=== PATIENT | male | born 1965 | race Caucasian/White ===

== ENCOUNTER 2023-12-30 20:12 | Emergency (ER) | payer BC, SELFPAY ==
[2023-12-30 20:19] VITALS: BP 170/106
[2023-12-30 20:35] LABS: % Basophils 0.6 % (0-2); % Eosinophils 0.2 % (0-6); % Immature Granulocytes 0.2 % (0-0.5); % Lymphocytes 18.6 % (20.5-51.1); % Monocytes 6.6 % (1.7-9.3); % Neutrophils 73.8 % (42.2-75.2); Absolute Monocytes 0.4 10^3/uL (0.1-0.6); Hematocrit 36.2 % (39.0-52.0); Hemoglobin 13.2 g/dL (13.0-18.0); Mean Corp Hgb Conc. 36.5 g/dL (33.0-37.0); Mean Corpuscular Hgb 29.9 pg (27.0-31.0); Mean Corpuscular Volume 81.9 fL (80.0-94.0); Mean Platelet Volume 8.5 fL (7.4-10.4); Nucleated Red Blood Cells % 0 % (-); Platelet Count 241 10^3/uL (130-400); Red Blood Cell Count 4.42 10^6/uL (4.70-6.10); Red Cell Dist. Width 12.4 % (11.5-14.5); White Blood Cell Count 5.4 10^3/uL (4.8-10.8)
[2023-12-30 20:53] LABS: COVID-19 Antigen Negative (Negative)
[2023-12-30 20:56] LABS: ALT (SGPT) 44 U/L (0-50); AST (SGOT) 48 U/L (17-59); Albumin 4.5 g/dl (3.5-5.0); Alkaline Phosphatase 66 U/L (38-126); Blood Urea Nitrogen 12 mg/dl (9-20); Calcium 9.5 mg/dl (8.4-10.2); Carbon Dioxide 26 mmol/L (22-30); Chloride 102 mmol/L (98-107); Glucose 95 mg/dl (70-99); Potassium 3.8 mmol/L (3.5-5.1); Sodium 142 mmol/L (135-145); Total Bilirubin 0.5 mg/dl (0.2-1.3); eGFR > 60.00
[2023-12-30 21:00] LABS: Troponin I < 0.012 ng/ml
[2023-12-30 22:22] VITALS: BP 158/90
--- NOTE | 2023-12-30 22:25 | EDRN ---
PT LEFT AT 12/30/2023 6379
== END 2023-12-30 22:10 ==
LOC: EMR 20:12
PROVIDERS: EMERGENCY PHYSICIAN Emergency Medicine
DX: R55 Syncope and collapse (principal); Z11.52 Encounter for screening for COVID-19; Z53.21 Procedure and treatment not carried out due to patient leaving prior to being seen by health care provider
CPT/HCPCS: 80053; 84484; 85025; 87811; 93005

== ENCOUNTER 2024-03-06 19:59 | Emergency (ER) | payer BC, SELFPAY ==
[2024-03-06] VITALS (7 sets, daily range): BP systolic 143–196; BP diastolic 96–107; BMI 28.3
[2024-03-06 20:30] LABS: % Basophils 0.6 % (0-2); % Eosinophils 0.1 % (0-6); % Immature Granulocytes 0.3 % (0-0.5); % Lymphocytes 16.5 % (20.5-51.1); % Monocytes 5.3 % (1.7-9.3); % Neutrophils 77.2 % (42.2-75.2); Absolute Lymphocytes 1.1 10^3/uL (1.2-3.4); Absolute Monocytes 0.4 10^3/uL (0.1-0.6); Absolute Neutrophils 5.2 10^3/uL (1.4-6.5); Hematocrit 40.7 % (39.0-52.0); Hemoglobin 14.2 g/dL (13.0-18.0); Mean Corp Hgb Conc. 34.9 g/dL (33.0-37.0); Mean Corpuscular Hgb 30.1 pg (27.0-31.0); Mean Corpuscular Volume 86.4 fL (80.0-94.0); Mean Platelet Volume 8.5 fL (7.4-10.4); Nucleated Red Blood Cells % 0 % (-); Platelet Count 247 10^3/uL (130-400); Red Blood Cell Count 4.71 10^6/uL (4.70-6.10); Red Cell Dist. Width 12.1 % (11.5-14.5); White Blood Cell Count 6.7 10^3/uL (4.8-10.8)
[2024-03-06 20:47] LABS: ALT (SGPT) 42 U/L (0-50); AST (SGOT) 53 U/L (17-59); Albumin 4.5 g/dl (3.5-5.0); Alkaline Phosphatase 69 U/L (38-126); Blood Urea Nitrogen 17 mg/dl (9-20); Calcium 9.4 mg/dl (8.4-10.2); Carbon Dioxide 27 mmol/L (22-30); Chloride 101 mmol/L (98-107); Glucose 93 mg/dl (70-99); Sodium 139 mmol/L (135-145); Total Bilirubin 0.8 mg/dl (0.2-1.3); Total Protein 7.3 g/dl (6.3-8.2); eGFR > 60.00
[2024-03-06 20:58] LABS: Troponin I < 0.012 ng/ml
--- NOTE | 2024-03-06 22:33 | ED.GENMED ---
History of Present Illness
<Dontrell Cline DO - Last Filed: 03/06/24 22:35>
General
Chief Complaint: Chest Pain
Time Seen by Provider: 03/06/24 21:36
<Wilber Issa PA-C - Last Filed: 03/07/24 00:04>
General
Source: patient
History of Present Illness
History of Present Illness:
58-year-old male presenting to the emergency department for evaluation of chest discomfort and shortness of breath that started approximately 2 hours prior to arrival in the emergency department with pain described to now be fully resolved but
initially was more of a dull discomfort within the central portion of his chest, nonradiating and constant at the time. Patient notes the associated shortness of breath but denies any cough, pleurisy, hemoptysis, abdominal pain, nausea, vomiting,
lightheadedness or dizziness. Denies any history of similar. Patient noted that earlier in the week he had traveled to [place] in [place] for work. Denies cigarettes or tobacco use. Does admit to drinking alcoholic beverages on the weekend and
states that he had 4 or 5 seltzers last night but nothing so far today.
Past History
<Dontrell Cline DO - Last Filed: 03/06/24 22:35>
Past History
ED Past Medical History: None
ED Past Surgical History: Orthopedic and Tonsilectomy
Social History
Tobacco: Non-smoker
Personal:
Living: with family
Employment: Employed (Sales)
<Wilber Issa PA-C - Last Filed: 03/07/24 00:04>
Past History
ED Past Medical History: GERD
Social History
Alcohol: Occasional
Drug: None
Review of Systems
<Wilber Issa PA-C - Last Filed: 03/07/24 00:04>
Review of Systems
All Other Systems: ROS reviewed and negative except as documented in HPI and ROS
Phy Exam
<Wilber Issa PA-C - Last Filed: 03/07/24 00:04>
Physical Exam
Physical Exam:
GENERAL: Alert , in no apparent distress
EYE: conjunctiva clear
NECK: Supple
ENT: o/p clr, mmm.
CARDIAC: Regular rate and rhythm
LUNGS: Clear breath sounds bilaterally, no acute respiratory distress, no wheezes/rales/rhonchi, mildly tachypnea
NEUROLOGICAL: Alert and oriented
SKIN: Warm and dry, skin intact.
MUSCULOSKELETAL: well perfused.
PSYCH: Normal and appropriate interaction.
Scores
<Wilber Issa PA-C - Last Filed: 03/07/24 00:04>
Heart Failure Risk
Heart Failure Risk Score: Not Applicable
Heart Score for Chest Pain Patients
STEMI patient?: No
History: Slightly or Non-Suspicious
ECG: Nonspecific Repolarization
Age: >45 - <65 years
Risk Factors: No Risk Factors
Troponin: </= Normal Limit
Heart Score for Chest Pain Patients: 2
Heart Score Risk: 2.5% MACE over next 6 weeks
Withdrawal Assessment of Alcohol
Withdrawal Assessment Completed?: Not applicable
Course
<Dontrell Cline DO - Last Filed: 03/06/24 22:35>
Orders/Labs/Results
Orders:
Orders
03/06/24 20:00
ECG [Electrocardiogram (*1)] Urgent
Reason for Study: Chest Pain
EKG- Treatment ONCE
03/06/24 20:22
Complete Blood Count/With Diff Urgent
Comprehensive Metabolic Panel Urgent
Troponin I Urgent
03/06/24 21:41
CT Chest Pe Study Urgent
Comment:
Reason For Exam: SOB, chest pain
03/06/24 22:30
EKG- Treatment ONCE
03/06/24 23:01
Troponin I Urgent
03/06/24 23:30
Electrocardiogram (*1) Urgent
Reason for Study: Shortness of Breath
Abnormal Lab Results
03/06/24
20:22
Absolute Lymphs (auto) 1.1 L 10^3/uL
(1.2-3.4)
Neutrophils % 77.2 H %
(42.2-75.2)
Lymphocytes % 16.5 L %
(20.5-51.1)
03/06/24 20:22
03/06/24 20:22
Vital Signs
Initial and Last Documented VS:
Initial Vital Signs
Temp Pulse Resp BP Pulse Ox
97.9 F 87 18 157/107 99
03/06/24 20:07 03/06/24 20:07 03/06/24 20:07 03/06/24 20:07 03/06/24 20:07
Last Documented Vital Signs
Temp Pulse Resp BP Pulse Ox
97.9 F 92 14 147/98 94
03/06/24 20:07 03/06/24 23:45 03/06/24 23:45 03/06/24 23:30 03/06/24 23:45
<Wilber Issa PA-C - Last Filed: 03/07/24 00:04>
Orders/Labs/Results
Orders:
Orders
03/06/24 20:00
ECG [Electrocardiogram (*1)] Urgent
Reason for Study: Chest Pain
EKG- Treatment ONCE
03/06/24 20:22
Complete Blood Count/With Diff Urgent
Comprehensive Metabolic Panel Urgent
Troponin I Urgent
03/06/24 21:41
CT Chest Pe Study Urgent
Comment:
Reason For Exam: SOB, chest pain
03/06/24 22:30
EKG- Treatment ONCE
03/06/24 23:01
Troponin I Urgent
03/06/24 23:30
Electrocardiogram (*1) Urgent
Reason for Study: Shortness of Breath
Abnormal Lab Results
03/06/24
20:22
Absolute Lymphs (auto) 1.1 L 10^3/uL
(1.2-3.4)
Neutrophils % 77.2 H %
(42.2-75.2)
Lymphocytes % 16.5 L %
(20.5-51.1)
03/06/24 20:22
03/06/24 20:22
Vital Signs
Initial and Last Documented VS:
Initial Vital Signs
Temp Pulse Resp BP Pulse Ox
97.9 F 87 18 157/107 99
03/06/24 20:07 03/06/24 20:07 03/06/24 20:07 03/06/24 20:07 03/06/24 20:07
Last Documented Vital Signs
Temp Pulse Resp BP Pulse Ox
97.9 F 92 14 147/98 94
03/06/24 20:07 03/06/24 23:45 03/06/24 23:45 03/06/24 23:30 03/06/24 23:45
<Wilber Issa PA-C - Last Filed: 03/07/24 00:04>
MDM/Problems Addressed
Differential Diagnosis Includes:
ACS, PE, PTX, anxiety, less concern for pneumonia
MDM/Problems Addressed:
58-year-old male presenting emergency department for evaluation of chest pain shortness of breath that began prior to arrival to the ER. States pain is now resolved but still with mild shortness of breath. Patient noted to be hypertensive in
triage but no history of hypertension. Given his tachypnea during exam combined with relatively sudden onset symptoms we will obtain a CTA of the chest to rule out PE. Anticipate 3-hour troponin. Reassessment following
<Wilber Issa PA-C - Last Filed: 03/07/24 00:04>
*Radiology
Radiology exam reviewed: radiology read reviewed
*Pulse Oximetry
Patient hypoxic: no
*EKG
Heart Rate: 85
Rate: normal
Rhythm: sinus
QRS Pattern: right bundle branch block
*Cable Tool Operator Interpretation
Rate: normal
Rhythm: sinus
*Critical Care Note
Total Time (30-74mins, 75-104mins- exclusive of procedures): Not Applicable
Data Reviewed
Review of Other/Old Records Reveals: Labs and Records
<Wilber Issa PA-C - Last Filed: 03/07/24 00:04>
Patient Management
Social determinants of health affecting care: Living situation and Strong social support
Escalation/DeEscalation of care consider admission/obs:
Patient's repeat troponin and EKG remain unchanged. Troponin still within normal limits albeit still slightly elevated from initial. Patient remains asymptomatic and states he had full resolution of symptoms. Will notify the chest pain hotline to
help expedite outpatient follow-up. I discussed with patient that his blood pressure was elevated during his visit here and that this should be repeated by his primary care provider or structural steel erector upon follow-up. We discussed dietary modification
and lifestyle changes to help with blood pressure management as well. Patient aware of return precautions to the ER. Stable for discharge home.
ED Attending Note
<Dontrell Cline DO - Last Filed: 03/06/24 22:35>
ED Attending Note
Patient seen and examined by attending physician: Yes
I performed the substantive portion of visit, reviewed & personally made and approve the management plan that is documented in note by myself or BENJAMIN.: Yes
ED Attending Note:
I have seen and evaluated the patient with a [id number] encounter. I have spoken to the advance practicer provider and involved in the medical history, the physical exam, medical decision making.
Evaluation and management service: agree unless noted differently below.
Results interpretation: agree unless noted differently below.
Focused HPI: 58-year-old male presenting with shortness of breath that started just prior to arrival. This is associated with chest pain.
Physical exam: Sitting in bed comfortably. Lungs clear
Medical Decision Making: On my assessment, patient states he is already starting to feel better. No therapeutic interventions were performed. Patient unsure if this is recently related to drinking alcohol. Regardless, his troponin is negative and
his CT PE rule out is negative as well. Given that all symptoms are improving, discussed PCP follow-up. He states he had a negative stress test a few years ago
-
Portions of this chart may have been created with voice recognition software.� Occasional wrong word or��sound alike� substitutions may have occurred due to the inherent limitations of voice recognition software.
Discharge Plan
Departure
Patient Disposition: Home (Routine Discharge)
Date of Disposition: 03/06/24
Time of Disposition: 23:41
Patient with high blood pressure during this ER visit?: Yes
Discharge Problem:
Chest pain, Elevated blood pressure reading
Instructions: Chest Pain CBC Follow Up
Prescriptions:
No Action
allopurinol 100 MG tablet
300 mg PO DAILY
Referrals:
Jericho Quinones MD [Family Provider] -
Interventions
Interventions:
*Risk Screen - Suicide Last Done: 03/06/24 20:07
*General Assessment Last Done: 03/06/24 20:07
*Neglect/Abuse Screening Last Done: 03/06/24 20:07
ED- Fall Risk Assessment Last Done: 03/06/24 21:17
*Nursing Disposition Last Done: 03/06/24 23:51
ED- Cardiac Assessment Last Done: 03/06/24 21:17
Discharge Date and Time
Discharge Date/Time: 03/06/24 23:51
Print Language: [id number]
[2024-03-06 23:38] LABS: Troponin I 0.022 ng/ml
== END 2024-03-06 23:51 | disposition home or self-care (01) ==
LOC: EMR 19:59
PROVIDERS: Emergency Medicine; Physician Assistant Medical; EMERGENCY PHYSICIAN Student in an Organized Health Care Education/Training Program; FAMILY PHYSICIAN Family Medicine
DX: R07.89 Other chest pain (principal); K21.9 Gastro-esophageal reflux disease without esophagitis
CPT/HCPCS: 99284; 71275; 80053; 84484; 85025; 93005; Q9967